=== PATIENT | female | born 1960 | race Asian ===

== ENCOUNTER → 2020-10-20 | Day surgery (SDC) | payer OTHER | END | disposition home or self-care (01) | LOC: JRADIR 09:51 | PROVIDERS: ATTEND Internal Medicine Endocrinology, Diabetes & Metabolism | PROC: 0G9K3ZX Drainage of Thyroid Gland, Percutaneous Approach, Diagnostic (ICD-10-PCS; principal; 2020-10-20) | DX: E04.9 Nontoxic goiter, unspecified (principal) | CPT/HCPCS: 10005; 76942; 88173; 88305-TC ==

== ENCOUNTER 2021-03-06 08:50 | Emergency (ER) | payer OTHER ==
[2021-03-06 09:50] VITALS: TEMP 98.1; BMI 30.7
[2021-03-06] MEDS ORDERED: ACETAMINOPHEN 1000 MG/100 ML VIAL (NON FORMULARY) IVPB ONE (09:59)
[2021-03-06] MEDS ORDERED: METOCLOPRAMIDE HCL INJECTION 10 MG/2 ML VIAL IVPB ONE (09:59)
[2021-03-06] MEDS ORDERED: MECLIZINE HCL 25 MG TABLET (FP) PO ONE (09:59)
[2021-03-06] MEDS ORDERED: SODIUM CHLORIDE 0.9% 500 ML INFUS.BAG IV ONE (10:02)
[2021-03-06] MEDS ORDERED: METOCLOPRAMIDE HCL INJECTION 10 MG/2 ML VIAL ONE (10:07)
[2021-03-06] MEDS ORDERED: MECLIZINE HCL 25 MG TABLET (FP) ONE (10:08)
[2021-03-06] MEDS ORDERED: ACETAMINOPHEN INJECTION 100 ML IVPB ONE (10:08)
[2021-03-06 10:50] LABS: BASO % 0.3 % (0-2.0); EOS % 0.4 % (0-4.5); HEMATOCRIT 40.5 % (32.4-45.2); HEMOGLOBIN 13.8 GM/dL (10.7-15.3); LYMPH % 13.5 % (8-40); MCH 29.3 pg (25.7-33.7); MCHC 34.2 g/dl (32.0-36.0); MEAN CELL VOLUME 85.9 fl (80-96); MEAN PLT VOLUME 9.3 fl (7.5-11.1); MONO % 3.7 % (3.8-10.2); NEUT % 82.1 % (42.8-82.8); PLATELET COUNT 253 10^3/uL (134-434); RBC 4.71 M/mm3 (3.60-5.2); RDW 13.7 % (11.6-15.6)
[2021-03-06] MEDS ORDERED: diazePAM CARPU-JECT 10 MG/2 ML DISP.SYRIN IVPUSH ONE (11:04)
[2021-03-06] MEDS ORDERED: diazePAM CARPU-JECT 10 MG/2 ML DISP.SYRIN ONE (11:06)
[2021-03-06 11:07] LABS: CHLORIDE 107 mmol/L (98-107); SODIUM 141 mmol/L (136-145)
[2021-03-06 11:09] LABS: ANION GAP 7 MMOL/L (8-16); CALCIUM 9.6 mg/dL (8.5-10.1); CO2 28 mmol/L (21-32); GLUCOSE,RANDOM 110 mg/dL (74-106)
[2021-03-06 11:12] LABS: SGOT/AST 20 U/L (15-37); SGPT/ALT 37 U/L (13-61)
[2021-03-06 11:13] LABS: CREATININE 0.9 mg/dL (0.55-1.3)
[2021-03-06 11:14] LABS: BILIRUBIN,TOTAL 0.6 mg/dL (0.2-1); TOT PROT 7.9 g/dl (6.4-8.2)
[2021-03-06 11:15] LABS: ALK PHOS 91 U/L (45-117)
[2021-03-06 12:52] VITALS: BP 159/103; PULSE 79
== END 2021-03-06 13:12 | disposition home or self-care (01) ==
LOC: JER 08:50
PROC: 3E0333Z Introduction of Anti-inflammatory into Peripheral Vein, Percutaneous Approach (ICD-10-PCS; principal; 2021-03-06)
PROC: 3E033NZ Introduction of Analgesics, Hypnotics, Sedatives into Peripheral Vein, Percutaneous Approach (ICD-10-PCS; 2021-03-06)
PROC: 3E033GC Introduction of Other Therapeutic Substance into Peripheral Vein, Percutaneous Approach (ICD-10-PCS; 2021-03-06)
DX: R42 Dizziness and giddiness (principal); R51.9 Headache, unspecified; R11.10 Vomiting, unspecified
CPT/HCPCS: 36415; 71045-TC-FY; 80053; 82550; 82553; 84484; 85025; 93005; 93010; 99284-25; J0131